=== PATIENT | male | born 2000 | race Caucasian/White ===

== ENCOUNTER 2024-12-05 11:08 | Outpatient (REF) | payer OTHER, SELFPAY ==
[2024-12-05 12:44] LABS: Salicylate < 5.0 mg/dL (15-30)
[2024-12-06 23:29] LABS: Immunoglobulin A 60 mg/dL (47-310); Transglutaminase Ab IgG <1.0 U/mL; Transglutaminase IgA <1.0 U/mL
[2024-12-08 15:54] LABS: Gliadin Deamidated IgA Ab <1.0 U/mL; Gliadin Deamidated IgG Ab <1.0 U/mL
== END 2024-12-05 11:09 | disposition home or self-care (01) ==
LOC: HO.LAB 11:08
PROVIDERS: PCP Physician Assistant Medical; Visit Provider Otolaryngology
DX: J30.89 Other allergic rhinitis (principal)
CPT/HCPCS: 36415; 80179; 82784; 82785; 86003; 86231; 86258; 86364

== ENCOUNTER 2024-12-11 14:25 | Outpatient (REF) | payer OTHER, SELFPAY ==
--- OUTSIDE RECORDS SUMMARY | 2024-12-11 18:22 | XMS_ITS | Continuity of Care Document ---
Author Organization [facility] [address] [facility] [address] [place] [address] Phone [phone] Social History Type Date Description Comments Sex Unknown Medical Devices Description No Information Available Encounters Description No Information Available Assessments Description No Information Available Plan of Treatment No Information Available Functional Status Description No Information Available Mental Status Description No Information Available Referrals Description No Information Available
== END 2024-12-11 14:26 | disposition home or self-care (01) ==
LOC: HO.LAB 14:25
PROVIDERS: PCP Physician Assistant Medical; Visit Provider Otolaryngology
DX: Z13.89 Encounter for screening for other disorder (principal)
CPT/HCPCS: 36415